=== PATIENT | male | born 1955 | race Caucasian/White ===

== ENCOUNTER 2017-07-12 07:31 | Day surgery (SDC) | payer BC ==
[~2017-07-12 07:31] MED LIST: LIDOCAINE HCL 1% MPF SOL ONE; PROPOFOL 500 MG/50 ML EMU IV ONE
[2017-07-12 07:50] VITALS: RESP 16
[2017-07-12 09:38] VITALS: TEMP 97.8
[2017-07-12 10:05] VITALS: BP 135/92; PULSE 50; O2SAT 97
== END 2017-07-12 10:45 | disposition home or self-care (01) ==
LOC: SURG 07:31
PROVIDERS: ATTEND Surgery
DX: Z12.11 Encounter for screening for malignant neoplasm of colon (principal); Z80.0 Family history of malignant neoplasm of digestive organs; Z86.010 Personal history of colon polyps; K57.32 Diverticulitis of large intestine without perforation or abscess without bleeding; K63.5 Polyp of colon
CPT/HCPCS: 99001; J2001; J2704